=== PATIENT | male | born 1945 | race Caucasian/White ===

== ENCOUNTER → 2018-09-05 | Outpatient (CLI) | payer MEDICARE | END | disposition home or self-care (01) | LOC: CVU 10:58 | PROVIDERS: ATTEND Internal Medicine Cardiovascular Disease | DX: I11.9 Hypertensive heart disease without heart failure (principal); I35.8 Other nonrheumatic aortic valve disorders; I77.819 Aortic ectasia, unspecified site | CPT/HCPCS: C8929; Q9957 ==

== ENCOUNTER 2019-02-11 08:03 | Outpatient (CLI) | payer MEDICARE | END 2019-02-11 23:59 | disposition home or self-care (01) | LOC: CFH 08:03 | PROVIDERS: ATTEND Internal Medicine Cardiovascular Disease | DX: R06.02 Shortness of breath (principal); R07.89 Other chest pain | CPT/HCPCS: 78452; 93017; A9502; J2785 ==

== ENCOUNTER 2019-07-02 13:48 | Outpatient (CLI) | payer MEDICARE ==
[2019-07-02 14:35] LABS: MICROSCOPIC NOT IND
[2019-07-02 14:49] LABS: BASOPHILS # (AUTO) 0.01 x10^3/uL (0-0.1); BASOPHILS % (AUTO) 0 % (0-1); EOSINOPHILS # (AUTO) 0.13 x10^3/uL (0-0.4); EOSINOPHILS % (AUTO) 3 % (1-7); LYMPHOCYTES # (AUTO) 0.83 x10^3/uL (1-3.4); LYMPHOCYTES % (AUTO) 20 % (22-44); MD NO; MEAN CORPUSCULAR HEMOGLOBIN 29.6 pg (27.5-34.5); MEAN CORPUSCULAR HGB CONC 33.2 g/dL (33.2-36.2); MEAN CORPUSCULAR VOLUME 89.2 fL (81-97); MEAN PLATELET VOLUME 8.3 fL (7.4-10.4); MONOCYTES # (AUTO) 0.55 x10^3/uL (0.2-0.8); MONOCYTES % (AUTO) 13 % (2-9); NEUTROPHILS # (AUTO) 2.72 x10^3/uL (1.8-6.8); NEUTROPHILS % (AUTO) 64 % (42-75); PLATELET COUNT 181 x10^3/uL (130-400); RED BLOOD COUNT 5.21 x10^6/uL (4.38-5.82); RED CELL DISTRIBUTION WIDTH 15.8 % (9.4-14.8)
[2019-07-02 14:56] LABS: INTERNATIONAL NORMALIZED RATIO 0.97 (0.93-1.1); PROTHROMBIN TIME 10.2 Seconds (9.6-11.5)
[2019-07-02 14:57] LABS: ANION GAP 6 mmol/L (5-15); CALCIUM 9.4 mg/dL (8.5-10.1); CHLORIDE 104 mmol/L (98-107); CREATININE 1.48 mg/dL (0.7-1.3)
[2019-07-02] MEDS ORDERED: HYDR12.517 PO (15:22)
[2019-07-02] MEDS ORDERED: UBID100C24 PO (15:22)
[2019-07-02] MEDS ORDERED: CHOL10003 PO (15:22)
[2019-07-02] MEDS ORDERED: LEVO88TA4 PO (15:22)
[2019-07-02] MEDS ORDERED: LATA7.5D EACHEYE (15:22)
[2019-07-02] MEDS ORDERED: PRAM1TAB PO (15:22)
[2019-07-02] MEDS ORDERED: MULT1TAB60 PO (15:22)
[2019-07-02] MEDS ORDERED: DOCU240C53 PO (15:22)
[2019-07-02] MEDS ORDERED: SIMV40TA20 PO (15:22)
[2019-07-02] MEDS ORDERED: GLUC1TAB27 PO (15:22)
[2019-07-02] MEDS ORDERED: ACYC-114 PO (15:22)
[2019-07-02] MEDS ORDERED: [UNRECOGNIZED DRUG - CODE] PO (15:22)
[2019-07-02] MEDS ORDERED: SILD20TA PO (15:22)
[2019-07-02] MEDS ORDERED: LISI-167 PO (15:22)
[2019-07-02] MEDS ORDERED: ALLO100T30 PO (15:22)
[2019-07-02] MEDS ORDERED: ICOS1CAP PO (15:22)
[2019-07-02] MEDS ORDERED: TAMS-11 PO (15:22)
[2019-07-02] MEDS ORDERED: FINA5TAB4 PO (15:22)
== END 2019-07-02 23:59 | disposition home or self-care (01) ==
LOC: STAR 13:48
PROVIDERS: ATTEND Student in an Organized Health Care Education/Training Program
DX: Z01.818 Encounter for other preprocedural examination (principal); N40.1 Benign prostatic hyperplasia with lower urinary tract symptoms
CPT/HCPCS: 36415; 80048; 81003; 85025; 85610; 87086; 93005

== ENCOUNTER 2019-07-31 10:16 | Day surgery (SDC) | payer MEDICARE ==
[~2019-07-31] VITALS: Ht 180.3 cm; Wt 121.2 kg
[~2019-07-31 10:16] MED LIST: ACYC-114 PO; ALLO100T30 PO; CHOL10003 PO; DOCU240C53 PO; FINA5TAB4 PO; GLUC1TAB27 PO; HYDR12.517 PO; ICOS1CAP PO; LATA7.5D EACHEYE; LEVO88TA4 PO; LISI-167 PO; MULT1TAB60 PO; PRAM1TAB PO; SILD20TA PO; SIMV40TA20 PO; TAMS-11 PO; UBID100C24 PO; [UNRECOGNIZED DRUG - CODE] PO
[2019-07-31] MEDS ORDERED: LACTATED RINGERS 1,000 ML IV SCH (10:37)
[2019-07-31 10:52] VITALS: BP 131/84
[2019-07-31] MEDS ORDERED: LEVO100T5 PO (10:52)
[2019-07-31] MEDS ORDERED: PRAM1.5T PO (10:52)
[2019-07-31] MEDS ORDERED: PLEASE ENTER HEIGHT AND WEIGHT MC SCH (11:00)
[2019-07-31] MEDS ORDERED: ONDANSETRON 2MG/ML, 2ML ONE (12:37)
[2019-07-31] MEDS ORDERED: DEXAMETHASONE 4 MG/ML, 1ML ONE (12:37)
[2019-07-31] MEDS ORDERED: CEFAZOLIN 1,000 MG ONE (12:37)
[2019-07-31] MEDS ORDERED: FENTANYL PF 100 MCG/2ML ONE (12:37)
[2019-07-31] MEDS ORDERED: PROPOFOL 10 MG/ML, 20ML ONE (12:37)
[2019-07-31] MEDS ORDERED: PHENYLEPHRINE 10 MG/ML ONE (12:37)
[2019-07-31] MEDS ORDERED: hydrALAzine 20 MG/ML, 1ML IV PRN (13:00)
[2019-07-31] MEDS ORDERED: HYDROmorphone 2 MG/ML, 1ML IVPush PRN (13:00)
[2019-07-31] MEDS ORDERED: METOPROLOL 1 MG/ML, 5ML IV PRN (13:00)
[2019-07-31] MEDS ORDERED: DIAZEPAM 5 MG/ML, 2ML IVPush PRN (13:00)
[2019-07-31] MEDS ORDERED: FENTANYL PF 100 MCG/2ML IV PRN (13:00)
[2019-07-31] MEDS ORDERED: MEPERIDINE/PF 25MG/ML,1ML IVPush PRN (13:00)
[2019-07-31] MEDS ORDERED: ALBUTEROL/IPRATROPIUM 2.5MG/0.5MG, 3 ML NPPB PRN (13:00)
[2019-07-31] MEDS ORDERED: ACETAMINOPHEN 325 MG TABLET PO PRN (13:00)
[2019-07-31] MEDS ORDERED: MIDAZOLAM 1 MG/ML, 2ML IV PRN (13:00)
[2019-07-31] MEDS ORDERED: OXYcodone 5 MG/5 ML ORAL.SOL UDC PO PRN (13:00)
[2019-07-31] MEDS ORDERED: PROMETHAZINE 25 MG/ML, 1ML IV PRN (13:00)
[2019-07-31] MEDS ORDERED: PHENAZOPYRIDINE 100 MG TABLET ONE (14:55)
[2019-07-31] MEDS ORDERED: PHENAZOPYRIDINE 100 MG TABLET PO PRN (15:00)
[2019-07-31] MEDS ORDERED: PHENAZOPYRIDINE 200 MG TABLET PO PRN (15:30)
== END 2019-07-31 15:40 | disposition home or self-care (01) ==
LOC: OUT 10:16
PROVIDERS: ATTEND Student in an Organized Health Care Education/Training Program
DX: N40.1 Benign prostatic hyperplasia with lower urinary tract symptoms (principal); N13.8 Other obstructive and reflux uropathy; N52.01 Erectile dysfunction due to arterial insufficiency; R39.14 Feeling of incomplete bladder emptying; I10 Essential (primary) hypertension; E78.5 Hyperlipidemia, unspecified; G47.33 Obstructive sleep apnea (adult) (pediatric); M10.9 Gout, unspecified; E66.9 Obesity, unspecified; E03.9 Hypothyroidism, unspecified; Z68.36 Body mass index [BMI] 36.0-36.9, adult; Z79.890 Hormone replacement therapy; Z79.899 Other long term (current) drug therapy; Z91.040 Latex allergy status; Z96.641 Presence of right artificial hip joint; Z98.890 Other specified postprocedural states
CPT/HCPCS: 52630; 88305; J0690; J1100; J2370; J2405; J2704; J3010; J7120

== ENCOUNTER 2019-08-04 04:33 | Emergency (ER) | payer MEDICARE ==
[~2019-08-04] VITALS: Ht 180.3 cm; Wt 123.3 kg
[~2019-08-04 04:33] MED LIST changes: +LEVO100T5 PO; +PRAM1.5T PO
--- NOTE | 2019-08-04 04:50 | NUR ---
Placed vitals monitors, ERP at bedside, bladder scan indicates >997mL.
--- NOTE | 2019-08-04 05:01 | NUR ---
Shultz catheter placed per provider order.
[2019-08-04 05:22] LABS: MICROSCOPIC AUTO
[2019-08-04 05:23] LABS: CULTURE INDICATED? YES
[2019-08-04 05:34] VITALS: BP 136/95
== END 2019-08-04 06:13 | disposition home or self-care (01) ==
LOC: ED 06:12
DX: N40.1 Benign prostatic hyperplasia with lower urinary tract symptoms (principal); R33.8 Other retention of urine; E78.00 Pure hypercholesterolemia, unspecified; E03.9 Hypothyroidism, unspecified
CPT/HCPCS: 51702; 81001; 87086; 99284

== ENCOUNTER 2021-02-18 10:02 | Outpatient (CLI) | payer MEDICARE ==
[~2021-02-18 10:02] MED LIST changes: -ACYC-114 PO; +ACYC-40 PO; +MULT-449 PO; -MULT1TAB60 PO
== END 2021-02-18 23:59 | disposition home or self-care (01) ==
LOC: RAD 10:02
PROVIDERS: ATTEND Orthopaedic Surgery
DX: M13.859 Other specified arthritis, unspecified hip (principal)
CPT/HCPCS: 78315; A9503